=== PATIENT | female | born 1980 | race Caucasian/White ===

== ENCOUNTER → 2024-07-04 12:07 | Outpatient (ROUT) | payer OTHER, SELFPAY ==
[2024-07-04 13:49] LABS: Urine N gonorrhoeae NOT DETECTED
[2024-07-04 13:51] LABS: Urine Chlamydia NOT DETECTED
[2024-07-04 14:50] LABS: Hepatitis B Surface Antigen NEGATIVE s/c (NEGATIVE)
[2024-07-04 15:08] LABS: HIV 1 & 2 Ab/Ag 4th Gen Combo NEGATIVE (NEGATIVE); Hep C Virus Ab w/Reflex Quant NEGATIVE s/c (NEGATIVE)
[2024-07-06 03:36] LABS: RPR Screen Non Reactive (Non Reactive)
== END ==
PROVIDERS: Visit Provider Family Medicine
DX: Z20.2 Contact with and (suspected) exposure to infections with a predominantly sexual mode of transmission (principal)
CPT/HCPCS: 86592; 86803; 87340; 87389; 87491; 87591

== ENCOUNTER 2024-08-30 10:33 | Day surgery (SDC) | payer OTHER, SELFPAY ==
[2024-08-30 10:57] VITALS: BP 100/73; PULSE 79; RESP 16; TEMP 37.1; O2SAT 99
--- NOTE | 2024-08-30 11:01 | PM.PREOP ---
Pre-operative Note Interval Note History & Physical reviewed/Exam performed by Physician: Yes Changes to H&P: No
[2024-08-30] MEDS: LACTATED RINGERS 1,000 ML 100 ML IV (11:05)
[2024-08-30] MEDS: LIDOCAINE 1% W/EPI 10ML 20 ML INJ (11:18)
[2024-08-30] MEDS: SILVER NITRATE STICK 2 EACH TOP (11:39)
[2024-08-30 11:42] VITALS: BP 80/40; PULSE 87; RESP 17; TEMP 36.2; O2SAT 96
--- NOTE | 2024-08-30 11:44 | PM.OP.COLON ---
Operative Date/Time/Diagnoses Date of procedure: 08/30/24 Time of procedure: 11:44 Pre-op diagnosis: 1. Colon screening 2. Prolapsed internal hemorrhoids 3. External residual hemorrhoidal skin tags Post-op diagnosis: same Procedure & Clinicians Study performed: 1. Colonoscopy 2. Anoscopy with rubber-band ligation internal hemorrhoids 3. Excision of external hemorrhoidal skin tags x3 Same procedure as scheduled: Yes Indications: Irritated external hemorrhoidal skin tags, colon screening Surgeon: Bryce Lambert Procedure Notes SCOAP/Timeout: Performed Procedure in detail: Time-out was performed. Mac was induced. Patient was placed in left lateral decubitus position. The perineum was inspected without any gross abnormality. Lubricated pediatric colonoscope was inserted and advanced to the cecum. The terminal ileum was intubated. The colonoscope was withdrawn slowly inspecting the circumference of the colon. Very small polyps may have been missed, prep quality was adequate. Retroflexed view of the rectum showed small, prolapsed nonbleeding internal hemorrhoids. Rubber band was applied to the left anterior quadrant prolapsed internal hemorrhoid. Total of 10 mL 1% lidocaine with epinephrine were infiltrated around 3 separate residual external hemorrhoidal skin tags. Iris scissors were used to excise the skin tags. Hemostasis was achieved with silver nitrate. The scope was withdrawn the patient was taken to PACU in good condition. Scope withdrawal time: 7 Findings: internal hemorrhoids Specimen(s): none sent Complications: none Impression: Normal colon, internal hemorrhoids, external hemorrhoids Post-procedure Recommendations: Colonoscopy in 10 years and Start medication(s) (1. Take Tylenol every 4 hours. 2. Take tizanidine every 8 hours as needed for spasm 3. Take oxycodone every 6 hours as needed for pain) Follow up: as needed Disposition: PACU
[2024-08-30 11:49] VITALS: BP 80/38; PULSE 88; RESP 19; O2SAT 99
[2024-08-30 11:52] VITALS: BP 78/46; PULSE 84; RESP 17; O2SAT 100
[2024-08-30 11:58] VITALS: BP 85/29; PULSE 90; RESP 20; O2SAT 100
[2024-08-30] MEDS: ACETAMINOPHEN 325 MG TABLET 975 MG PO (12:06)
[2024-08-30 12:07] VITALS: BP 90/50; PULSE 86; RESP 17; O2SAT 100
== END 2024-08-30 12:44 | disposition home or self-care (01) ==
PROVIDERS: PCP Family Medicine; Referring Provider Surgery; Visit Provider Surgery
PROC: 0DJD8ZZ Inspection of Lower Intestinal Tract, Via Natural or Artificial Opening Endoscopic (ICD-10-PCS; CPT 45378; principal; 2024-08-30 11:30)
DX: Z12.11 Encounter for screening for malignant neoplasm of colon (principal); K64.8 Other hemorrhoids; K64.4 Residual hemorrhoidal skin tags
CPT/HCPCS: 46230; 45378; J2704